=== PATIENT | female | born 1975 | race Caucasian/White ===

== ENCOUNTER 2017-04-07 16:38 | Emergency (ER) | payer MEDICAID ==
[~2017-04-07] VITALS: Ht 152.4 cm; Wt 89.0 kg
[~2017-04-07 16:38] MED LIST: HYDR-762 PO; IBUP800T25 PO
[2017-04-07 16:39] VITALS: Ht 152.4 cm; Wt 89.0 kg
[2017-04-07] MEDS ORDERED: BEN25 PO (17:17)
[2017-04-07] MEDS ORDERED: ELIM TOP (17:17)
[2017-04-07] MEDS ORDERED: DIPHENHYDRAMINE 25 MG CAP PO ONE (17:30)
--- NOTE | 2017-04-07 17:30 | ERD ---
ER Documentation Chief Complaint Date/Time DATE: 04/07/17 TIME: 17:26 Chief Complaint rash all over body x 1 month HPI 41-year-old female patient with no significant past medical history presents to the ED complaining of diffuse rash in her webspaces of the right hand, abdomen, lower legs that started intermittently for 1 month. Reports that it is very itchy. States that it is red. Denies any chest pain, shortness of breath, abdominal pain, nausea, vomiting, diarrhea, fever, chills. ROS All systems reviewed and are negative except as per history of present illness. Medications Home Meds Active Scripts Diphenhydramine Hcl* (Benadryl*) 25 Mg Cap, 25 MG PO Q6 Y for ITCHING/RASH, #30 TAB Prov:SHERI YBARRA PA-C 04/07/17 Permethrin* (Elimite*) 5% Cr, 1 APPLIC TOP ONCE, #2 TUB Use 1 tube, apply from the neck down. Leave on for 8 hours. Can repeat 2nd tube in 14 days if symptoms do not improve. Prov:SHERI YBARRA PA-C 04/07/17 Hydrocodone Bit-Acetaminophen* ([place]*) 10-325 Mg Tablet, 1 TAB PO Q6 Y for PAIN , #20 TAB Prov:CHALO TADEO PA-C 05/18/15 Ibuprofen* (Ibuprofen*) 800 Mg Tab, 800 MG PO Q6H Y for PAIN, #30 TAB Prov:CHALO TADEO PA-C 05/18/15 Allergies Allergies: Coded Allergies: No Known Allergy (Unverified , 04/07/17) PMhx/Soc Medical and Surgical Hx: pt denies Medical Hx, pt denies Surgical Hx History of Surgery: No Anesthesia Reaction: No Hx Neurological Disorder: No Hx Respiratory Disorders: No Hx Cardiac Disorders: No Hx Psychiatric Problems: No Hx Miscellaneous Medical Probl: No Hx Alcohol Use: No Hx Substance Use: No Hx Tobacco Use: No Smoking Status: Never smoker Physical Exam Vitals Vital Signs Date Time Temp Pulse Resp B/P Pulse Ox O2 Delivery O2 Flow Rate FiO2 04/07/17 16:39 98.3 96 18 123/76 97 Physical Exam Const: [id number], well-nourished. In no acute distress. Head: Atraumatic, normocephalic Eyes: Normal Conjunctiva without injection. No purulent discharge. PERRL. EOMI ENT: Normal external ear. Ear canal without erythema. Tympanic membrane pearly james without effusion or bulging. Nasal canal clear with normal turbinates. Moist oropharynx without tonsillar exudates. Non-erythematous pharynx. Uvula midline. No drooling. No trismus. Neck: Full range of motion. No meningismus. No cervical lymphadenopathy. Resp: Clear to auscultation bilaterally. No wheezing, rhonchi, rales, or crackles. No accessory muscle use. No retractions. Cardio: Regular rate and rhythm. No murmurs, rubs or gallops. Abd: Soft, non tender, non distended. Normal bowel sounds. No palpable masses. No rebound tenderness. No guarding. Skin: No petechiae, purpura. Diffuse erythematous papules diffusely on the webspace of patient's right hand, abdomen, legs, buttocks. No fluctuance or induration. No induration. Back: No midline tenderness. No CVA tenderness. Ext: No cyanosis, or edema. Neur: Awake and alert. Psych: Normal Mood and Affect Results 24 hrs Current Medications Medications (Trade) Dose Ordered Sig/Tangela Route PRN Reason Start Time Stop Time Status Last Admin Dose Admin Diphenhydramine HCl (Benadryl) 25 mg ONCE ONCE PO 04/07/17 17:30 04/07/17 17:31 DC 04/07/17 17:19 Procedures/MDM 41-year-old female patient with no significant past medical history presents to the ED complaining of a rash diffusely all over her body that is very itchy. Patient is afebrile and nontoxic-appearing. Patient has normal vital signs. Patient could likely have scabies since patient's rash is predominantly noted of the web spaces of her hand. Patient could possibly have scabies. Low suspicion for SJS/TEN, erythema multiforme, sepsis, cellulitis, necrotizing fascitis, gangrene, meningococcemia or other emergent conditions. Discharge medications: Benadryl, Permethrin Follow up with primary care physician in 1-2 days. Instructed patient to return to the ED sooner for any worsening symptoms. Patient's questions were answered. Patient understood and agreed with discharge plan. Patient discharged stable. Departure Diagnosis: Primary Impression: Rash and other nonspecific skin eruption Condition: Stable Patient Instructions: Self-Care for Skin Rashes, Scabies Referrals: [facility] YOU HAVE RECEIVED A MEDICAL SCREENING EXAM AND THE RESULTS INDICATE THAT YOU DO NOT HAVE A CONDITION THAT REQUIRES URGENT TREATMENT IN THE EMERGENCY DEPARTMENT. FURTHER EVALUATION AND TREATMENT OF YOUR CONDITION CAN WAIT UNTIL YOU ARE SEEN IN YOUR DOCTORS OFFICE WITHIN THE NEXT 1-2 DAYS. IT IS YOUR RESPONSIBILITY TO MAKE AN APPOINTMENT FOR FOLOW-UP CARE. IF YOU HAVE A PRIMARY DOCTOR --you should call your primary doctor and schedule an appointment IF YOU DO NOT HAVE A PRIMARY DOCTOR YOU CAN CALL OUR PHYSICIAN REFERRAL HOTLINE AT IF YOU CAN NOT AFFORD TO SEE A PHYSICIAN YOU CAN CHOSE FROM THE FOLLOWING [facility] [address] [address] [facility]. [facility] [address] [facility] [address] [facility] [address] [facility] [address] [facility]. [facility] [address] [facility]. [facility] YOU HAVE RECEIVED A MEDICAL SCREENING EXAM AND THE RESULTS INDICATE THAT YOU DO NOT HAVE A CONDITION THAT REQUIRES URGENT TREATMENT IN THE EMERGENCY DEPARTMENT. FURTHER EVALUATION AND TREATMENT OF YOUR CONDITION CAN WAIT UNTIL YOU ARE SEEN IN YOUR DOCTORS OFFICE WITHIN THE NEXT 1-2 DAYS. IT IS YOUR RESPONSIBILITY TO MAKE AN APPOINTMENT FOR FOLOW-UP CARE. IF YOU HAVE A PRIMARY DOCTOR --you should call your primary doctor and schedule and appointment IF YOU DO NOT HAVE A PRIMARY DOCTOR YOU CAN CALL OUR PHYSICIAN REFERRAL HOTLINE AT . IF YOU CAN NOT AFFORD TO SEE A PHYSICIAN YOU CAN CHOSE FROM THE FOLLOWING [facility] INSTITUTIONS: [facility] [address] [place] [address] [facility] [address] [place] [address] [facility] [address] [place] [address] [facility] URGENT CARE/SPECIALTIES Additional Instructions: Llame al doctor MAANA y ventura dane AYAAN PARA DENTRO DE 2-3 IQBAL.Dgale a la secretaria que nosotros le instruimos hacer esta ayaan.Avise o llame si mae condicin se empeora antes de la ayaan. Regresa aqui si peor o no mejor - fiebre , infeccin. SHERI YBARRA PA-C Apr 07, 2017 17:30 SHERI YBARRA PA-C Apr 07, 2017 17:30
== END 2017-04-07 17:37 | disposition home or self-care (01) ==
LOC: FTE 16:38
DX: R21 Rash and other nonspecific skin eruption (principal)
CPT/HCPCS: Z7502; Z7610; 99283

== ENCOUNTER 2018-01-28 12:48 | Emergency (ER) | END 2018-01-28 14:28 | disposition home or self-care (01) ==